=== PATIENT | female | born 1960 | race Caucasian/White ===

== ENCOUNTER 2018-11-15 01:49 | Emergency (ER) | payer BC ==
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
[2018-11-15] MEDS ORDERED: fentaNYL 100 MCG/2 ML SDV IM ONE (03:09)
== END 2018-11-15 03:30 ==
LOC: CC.ED 01:49
DX: S82.51XA Displaced fracture of medial malleolus of right tibia, initial encounter for closed fracture (principal); S89.201A Unspecified physeal fracture of upper end of right fibula, initial encounter for closed fracture; S93.04XA Dislocation of right ankle joint, initial encounter; Z88.0 Allergy status to penicillin; X50.1XXA Overexertion from prolonged static or awkward postures, initial encounter
CPT/HCPCS: 73610; 96372; 99284; J3010